=== PATIENT | female | born 1950 | race Caucasian/White ===

== ENCOUNTER 2020-03-29 13:25 | Outpatient (CLI) | payer MEDICARE, OTHER | END 2020-03-29 13:26 | disposition home or self-care (01) | LOC: COV 13:25 | PROVIDERS: ATTEND Family Medicine | DX: R05 Cough (principal); R53.83 Other fatigue; Z20.828 Contact with and (suspected) exposure to other viral communicable diseases ==

== ENCOUNTER 2021-02-21 10:59 | Emergency (ER) | payer MEDICARE, OTHER ==
[2021-02-21] MEDS ORDERED: ceFAZolin 1 GM VIAL IM STA (12:16)
--- NOTE | 2021-02-21 12:17 | ED Physician Documentation ---
PD HPI WOUND RECHECK - Stated complaint Stated Complaint: LT LEG PX - Chief complaint Chief Complaint: Wound - Histroy obtained from History obtained from: Patient (4 days ago she thinks she got a bug bite on the left calf and subsequently it became more swollen and red with fever to 101 and aches and queasiness. 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 HEENT: Cataracts, Tonsil/Adenoidectomy - Present Medications Home Medications: Ambulatory Orders Medication Instructions Recorded Confirmed cephALEXin [Keflex] 500 mg PO Q6H #28 cap 02/21/21 - Allergies Allergies/Adverse Reactions: Allergies Allergy/AdvReac Type Severity Reaction Status Date / Time No Known Drug Allergies Allergy Verified 02/21/21 11:09 - Social History Does the pt smoke?: No Smoking Status: Never smoker PD ED PE NORMAL - Vitals Vital signs reviewed: Yes - General General: Alert and oriented X 3, No acute distress - Extremities Extremities: Other (There is an area of cellulitis measuring about 4 cm in diameter on the lateral upper posterior left calf. Bedside ultrasound demonstrates no fluid collection. No pain out of proportion to exam.) - Neuro Neuro: Alert and oriented X 3, Normal speech Results - Vitals Vitals: Vital Signs - 24 hr 02/21/21 11:05 Temperature 37.2 C Heart Rate 82 Respiratory 16 Rate Blood Pressure 144/79 H O2 Saturation 97 Oxygen O2 Source Room air Departure - Departure Disposition: 01 Home, Self Care Clinical Impression: Cellulitis of left leg Condition: Good Record reviewed to determine appropriate education?: Yes Instructions: Cellulitis Dc Prescriptions: cephALEXin [Keflex] 500 mg PO Q6H #28 cap Comments: Return if worsening or if not improving over the next 48 hours or so. Elevate is much as possible. Follow-up with your doctor in a few days for for a wound check.
[2021-02-21 12:49] VITALS: BP 137/87
== END 2021-02-21 12:47 | disposition home or self-care (01) ==
LOC: ED 10:59
DX: L03.116 Cellulitis of left lower limb (principal)
CPT/HCPCS: 96372; 99283

== ENCOUNTER 2021-02-27 10:26 | Emergency (ER) | payer MEDICARE ==
[2021-02-27 10:54] LABS: BASOPHILS # (AUTO) 0.1 10^3/uL (0.0-0.1); BASOPHILS % (AUTO) 0.8 %; EOSINOPHILS # (AUTO) 0.3 10^3/uL (0.0-0.7); EOSINOPHILS % (AUTO) 2.6 %; HCT - HEMATOCRIT 46.3 % (37.0-47.0); HGB - HEMOGLOBIN 15.4 g/dL (12.0-16.0); LYMPHOCYTES # (AUTO) 2.4 10^3/uL (1.5-3.5); LYMPHOCYTES % (AUTO) 25.2 %; MEAN CORPUSCULAR HEMOGLOBIN 32.5 pg (27.0-31.0); MEAN CORPUSCULAR HGB CONC 33.3 g/dL (32.0-36.0); MEAN CORPUSCULAR VOLUME 97.7 fL (81.0-99.0); MEAN PLATELET VOLUME 8.8 fL (7.9-10.8); MONOCYTES # (AUTO) 0.7 10^3/uL (0.0-1.0); NEUTROPHILS % (AUTO) 63.8 %; PLT - PLATELET COUNT 374 10^3/uL (130-450); RED BLOOD COUNT 4.74 10^6/uL (4.20-5.40); RED CELL DISTRIBUTION WIDTH 12.7 % (12.0-15.0); WHITE BLOOD COUNT 9.5 x10^3/uL (4.8-10.8)
[2021-02-27 11:03] LABS: ALBUMIN 4.4 g/dL (3.2-5.5); ALBUMIN/GLOBULIN RATIO 1.4 (1.0-2.2); BILIRUBIN,TOTAL 0.6 mg/dL (0.2-1.0); CREATININE 0.7 mg/dL (0.4-1.0); MAGNESIUM 2.5 mg/dL (1.7-2.8); TOTAL PROTEIN 7.6 g/dL (6.7-8.2)
--- NOTE | 2021-02-27 11:43 | ED Physician Documentation ---
History of Present Illness - Stated complaint Stated Complaint: WEAK/DIZZINESS - Chief complaint Chief Complaint: Neuro - History obtained from History obtained from: Patient - Additonal information Additional information: This is a very healthy 70-year-old woman who I saw about a week ago for leg cellulitis. There is no fluid collection at that time. Subsequently went to a walk-in where an abscess had formed and had an incision and drainage approximately 4 days ago. She was changed from Keflex to doxycycline and she states that a wound culture is pending. She has not received any news about that. Her only medication is doxycycline. She has felt intermittently lightheaded this morning. It does not seem to be positional related to head motion. She is not nauseous. There is no associated chest pain or trouble breathing. 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 HEENT: Cataracts, Tonsil/Adenoidectomy - Present Medications Home Medications: Ambulatory Orders Medication Instructions Recorded Confirmed Doxycycline Hyclate 100 mg PO BID 02/27/21 02/27/21 cephALEXin [Keflex] 500 mg PO Q6H #20 cap 02/27/21 - Allergies Allergies/Adverse Reactions: Allergies Allergy/AdvReac Type Severity Reaction Status Date / Time No Known Drug Allergies Allergy Verified 02/27/21 10:44 - Social History Does the pt smoke?: No Smoking Status: Never smoker Does the pt drink ETOH?: Yes ETOH Use: Wine Does the pt have substance abuse?: No - Immunizations Immunizations are current?: Yes PD ED PE NORMAL - Vitals Vital signs reviewed: Yes - General General: Alert and oriented X 3, No acute distress - HEENT HEENT: PERRL, EOMI - Neck Neck: Supple, no meningeal sign, No bony TTP - Cardiac Cardiac: RRR, No murmur, Other (But occasional extrasystoles on the monitor comes corresponding to PVCs) - Respiratory Respiratory: No respiratory distress, Clear bilaterally - Abdomen Abdomen: Soft, Non tender - Back Back: No CVA TTP, No spinal TTP - Derm Derm: Normal color, Warm and dry - Extremities Extremities: Other (There is a packed abscess on the left calf which is with much less cellulitis than when I saw her last week.) - Neuro Neuro: Alert and oriented X 3, Normal speech Results - Vitals Vitals: Vital Signs - 24 hr 02/27/21 02/27/21 02/27/21 10:35 11:10 12:26 Temperature 37.1 C 37.1 C Heart Rate 75 73 Heart Rate [ 70 Sitting] Heart Rate [ 82 Standing] Heart Rate [ 66 Supine] Respiratory 13 14 Rate Blood Pressure 153/77 H 156/85 H Blood Pressure 139/87 H [Sitting] Blood Pressure 138/91 H [Standing] Blood Pressure 149/86 H [Supine] O2 Saturation 98 97 Oxygen O2 Source Room air - EKG (time done) 1040 Rate: Rate (enter#) (74) Rhythm: NSR (occ pvc) [place]: Normal Intervals: Normal [place] QRS: Normal Ischemia: Normal ST segments - Labs Labs: Laboratory Tests 02/27/21 02/27/21 10:42 10:42 WBC 9.5 RBC 4.74 Hgb 15.4 Hct 46.3 MCV 97.7 MCH 32.5 H MCHC 33.3 RDW 12.7 Plt Count 374 MPV 8.8 Neut # (Auto) 6.0 Lymph # (Auto) 2.4 [place] # (Auto) 0.7 Eos # (Auto) 0.3 Baso # (Auto) 0.1 Absolute Nucleated RBC 0.00 Nucleated RBC % 0.0 Sodium 137 Potassium 4.0 Chloride 101 Carbon Dioxide 27 Anion Gap 9.0 BUN 16 Creatinine 0.7 Estimated GFR (MDRD) 83 L Glucose 104 H Calcium 10.0 Magnesium 2.5 Total Bilirubin 0.6 AST 27 ALT 26 Alkaline Phosphatase 54 Total Protein 7.6 Albumin 4.4 Globulin 3.2 Albumin/Globulin Ratio 1.4 PD MEDICAL DECISION MAKING - ED course Complexity details: reviewed old records ED course: 70 yo female with nonspecific dizziness, lightheadhed after being on doxycycline for a few days for improving LLE abscess/cellulitis. Not orthostatic here. Pt wants to go back on keflex. Cx from [facility] reviewed, Prelim + staph aureus, sensitivities pending. Departure - Departure Disposition: 01 Home, Self Care Clinical Impression: Dizziness Condition: Good Record reviewed to determine appropriate education?: Yes Instructions: ED Dizziness [facility] Prescriptions: cephALEXin [Keflex] 500 mg PO Q6H #20 cap Comments: As discussed, you were seen today for nonspecific lightheadedness/dizziness. The only identifiable cause would be the new antibiotic. You were not orthostatic here. Your labs all look fine. The cultures from [facility] received and reviewed, positive for staph aureus. The sensitivities were not done yet. I think it is fine to stop the doxycycline as discussed and to restart the Keflex. Return for new or worsening symptoms. If you remain persistently symptomatic, discuss echocardiogram and/or Holter monitor with your physician. Discharge Date/Time: 02/27/21 13:01
[2021-02-27 12:27] VITALS: BP 149/86
== END 2021-02-27 13:01 | disposition home or self-care (01) ==
LOC: ED 10:26
DX: R42 Dizziness and giddiness (principal); L03.116 Cellulitis of left lower limb
CPT/HCPCS: 36415; 80053; 83735; 85025; 93005; 99283; 99284

== ENCOUNTER 2021-07-05 13:34 | Emergency (ER) | payer MEDICARE | END 2021-07-05 14:52 | disposition left against medical advice (07) | LOC: ED 13:34 | DX: Z53.21 Procedure and treatment not carried out due to patient leaving prior to being seen by health care provider (principal) ==

== ENCOUNTER 2022-11-01 10:49 | Outpatient (CLI) | payer MEDICARE ==
--- NOTE | 2022-11-01 11:24 | DEXA Report ---
PROCEDURE: Dexa Spine and/or Hip INDICATIONS: OSTEOPENIA TECHNIQUE: Dual energy x-ray absorptiometry (DXA) was performed on a Histogen System. Regions measur ed are the AP Spine, femoral neck, and if needed forearm. COMPARISON: None. FINDINGS: Lumbar Spine: Bone Mineral Density 1.087 g/cm/cm,T score -0.8, normal Left Femoral Neck: Bone Mineral Density 0.699 g/cm/cm, T score -2.4, severe osteopenia Left Hip: Bone Mineral Density 0.760 g/cm/cm,T score -2.0, moderate osteopenia (T score greater or equal to -1.0: NORMAL) (T score from -1.1 to -2.4: OSTEOPENIA) (T score less than or equal to -2.5 to: OSTEOPOROSIS) Impression: Osteopenia most severe in the left hip. Patients with diagnosis of osteoporosis or osteopenia should have regular bone mineral density assess ment. For those eligible for Medicare, routine testing is allowed once every 2 years. Testing frequ ency can be increased for patients who have rapidly progressing disease or for those who are receivin g medical therapy to restore bone mass. Reviewed by: Rubi Westfall MD on 11/01/2022 11:23 AM PDT Approved by: Rubi Westfall MD on 11/01/2022 11:23 AM PDT Station ID: [id number]
== END 2022-11-01 10:50 | disposition home or self-care (01) ==
LOC: DI 10:49
PROVIDERS: ATTEND Nurse Practitioner Family
DX: M85.89 Other specified disorders of bone density and structure, multiple sites (principal)